=== PATIENT | male | born 1960 | race Two or more races ===

== ENCOUNTER 2020-11-29 14:41 | Emergency (ER) | payer OTHER ==
[~2020-11-29] VITALS: Ht 185.4 cm; Wt 84.1 kg
[2020-11-29] MEDS ORDERED: LORA10TA7 PO (14:56)
[2020-11-29] MEDS ORDERED: [UNRECOGNIZED DRUG - CODE] IM (14:56)
[2020-11-29] MEDS ORDERED: LOSA50TA37 PO (14:56)
[2020-11-29] MEDS ORDERED: DEXA2 PO (14:56)
[2020-11-29] MEDS ORDERED: IBUP-2759 PO (14:56)
[2020-11-29 16:13] LABS: COVID AG,FIA SOURCE NASOPHARYNGEAL
[2020-11-29 18:09] VITALS: BP 156/66
== END 2020-11-29 19:15 | disposition home or self-care (01) ==
LOC: EMS 14:47
DX: J18.9 Pneumonia, unspecified organism (principal); I10 Essential (primary) hypertension; Z20.822 Contact with and (suspected) exposure to COVID-19; Z79.899 Other long term (current) drug therapy
CPT/HCPCS: 71045; 87426; 99284; U0003